=== PATIENT | female | born 1960 | race Caucasian/White ===

== ENCOUNTER 2021-05-09 11:16 | Inpatient (IN) ==
[2021-05-09 12:28] LABS: Basophils % 0.1 % (0.0-0.8); Hematocrit 42.2 VOL% (35.7-47.0); Hemoglobin 16.2 GM/DL (12.0-16.0); Immature Granulocytes % 0.5 %; Immature Granulocytes Absolute 0.05 #; Mean Corpuscular HGB Conc 38.4 GM/DL (32-36); Mean Corpuscular Volume 86.5 FL (87-102); Mean Platelet Volume 9.1 FL (9.6-12.0); Monocytes % 7.6 % (1.7-12.7); Neutrophils % 72.8 % (38.7-73.9); Platelet Count 256 T/CUMM (130-400); Red Blood Count 4.88 MC/CUMM (3.8-5.5); Red Cell Distribution Width 13.4 % (9.3-17.3); White Blood Count 10.4 T/CUMM (4-12)
[2021-05-09] MEDS ORDERED: ONDANSETRON 4 MG/2 ML VIAL IV STA (12:30)
[2021-05-09] MEDS ORDERED: SODIUM CHLORIDE 0.9% 1,000 ML IV STA (12:30)
[2021-05-09] MEDS ORDERED: HYDROmorphone 2 MG/1 ML VIAL IV STA (12:30)
[2021-05-09 14:36] LABS: Albumin 2.8 G/DL (3.4-5.0); Bilirubin,Total 0.9 MG/DL (0.20-1.00); Osmolality,Calculated 265.7 MOS/KG (273-304); Potassium 3.5 MMOL/L (3.5-5.1); Total Protein 6.7 G/DL (6.4-8.2)
[2021-05-09 14:37] LABS: Calcium 8.1 MG/DL (8.5-10.1)
[2021-05-09] MEDS ORDERED: DEXTROSE 50% 25 GM/50 ML VIAL IV PRN ×2 (14:39→16:38)
[2021-05-09] MEDS ORDERED: ALBUTEROL 2.5 MG/3 ML NEB RESP TX PRN (14:39)
[2021-05-09] MEDS ORDERED: GLUCAGON 1 MG VIAL IM PRN ×2 (14:39→16:38)
[2021-05-09] MEDS ORDERED: hydrALAZINE 20 MG/1 ML VIAL IV PRN (14:39)
[2021-05-09 15:40] LABS: Risk Ratio 12.96; VLDL Cholesterol 217.8 MG/DL
[2021-05-09] MEDS ORDERED: FUROSEMIDE 40 MG TABLET PO PRN (15:45)
[2021-05-09] MEDS ORDERED: BUTALBITAL/ACETAMIN/CAFFEINE 50-325-40 MG TABLET PO PRN (15:45)
[2021-05-09] MEDS ORDERED: PROMETHAZINE 25 MG TABLET PO PRN (15:45)
[2021-05-09] MEDS: SODIUM CHLORIDE 0.9% 1,000 ML IV SCH (15:49)
[2021-05-09] MEDS: HYDROmorphone 2 MG/1 ML VIAL IV PRN ×2 (15:50→20:06)
[2021-05-09] MEDS: ENOXAPARIN 40 MG/0.4 ML SYRINGE SUBCUT SCH (15:50)
[2021-05-09] MEDS: ONDANSETRON 4 MG/2 ML VIAL IV PRN (15:50)
[2021-05-09] MEDS ORDERED: clonazePAM 0.5 MG TABLET PO PRN (15:58)
[2021-05-09] MEDS: INSULIN LISPRO 100 UNIT/ML SUBCUT SCH (17:26)
[2021-05-09 20:11] LABS: Osmolality,Calculated 262.8 MOS/KG (273-304); Potassium 4.1 MMOL/L (3.5-5.1)
[2021-05-09 20:16] LABS: Calcium 8.4 MG/DL (8.5-10.1)
[2021-05-09] MEDS: ICOSAPENT ETHYL 1 GM PO SCH (21:47)
[2021-05-09] MEDS: ZALEPLON 5 MG CAPSULE PO SCH (21:48)
[2021-05-10] MEDS: INSULIN LISPRO 100 UNIT/ML SUBCUT SCH ×4 (01:30→18:33)
[2021-05-10] MEDS: HYDROmorphone 2 MG/1 ML VIAL IV PRN ×3 (02:40→15:51)
[2021-05-10] MEDS: SODIUM CHLORIDE 0.9% 1,000 ML IV SCH ×3 (02:42→15:56)
[2021-05-10] MEDS: ACETAMINOPHEN 325 MG TABLET PO PRN ×2 (03:51→09:15)
[2021-05-10 06:39] LABS: Basophils % 0.2 % (0.0-0.8); Eosinophils % 0.1 % (0.00-10.9); Hematocrit 38.6 VOL% (35.7-47.0); Hemoglobin 13.7 GM/DL (12.0-16.0); Immature Granulocytes % 0.4 %; Immature Granulocytes Absolute 0.04 #; Lymphocytes # 2.3 10*3/uL (1.4-4.0); Lymphocytes % 22.8 % (21.3-54.2); Mean Corpuscular HGB Conc 35.5 GM/DL (32-36); Mean Platelet Volume 9.5 FL (9.6-12.0); Monocytes % 9.1 % (1.7-12.7); Neutrophils % 67.4 % (38.7-73.9); Platelet Count 190 T/CUMM (130-400); Red Blood Count 4.29 MC/CUMM (3.8-5.5); Red Cell Distribution Width 13.8 % (9.3-17.3); White Blood Count 9.9 T/CUMM (4-12)
[2021-05-10 07:59] LABS: Bilirubin,Total 1.5 MG/DL (0.20-1.00); Osmolality,Calculated 270.2 MOS/KG (273-304); Potassium 3.6 MMOL/L (3.5-5.1)
[2021-05-10] MEDS ORDERED: PANTOPRAZOLE 20 MG TABLET PO SCH (09:00)
[2021-05-10] MEDS: VALSARTAN 80 MG TABLET PO SCH (09:14)
[2021-05-10] MEDS: PRASUGREL 10 MG TABLET PO SCH (09:14)
[2021-05-10] MEDS: FENOFIBRATE 145 MG TABLET PO SCH (09:14)
[2021-05-10] MEDS: NEBIVOLOL 10 MG TABLET PO SCH (09:14)
[2021-05-10] MEDS: VENLAFAXINE XR 75 MG CAPSULE PO SCH (09:14)
[2021-05-10] MEDS: cloNIDine 0.1 MG TABLET PO SCH (09:14)
[2021-05-10] MEDS: ASPIRIN EC 81 MG TABLET PO SCH (09:14)
[2021-05-10] MEDS: PANTOPRAZOLE 40 MG TABLET PO SCH (09:14)
[2021-05-10] MEDS: ICOSAPENT ETHYL 1 GM PO SCH ×2 (09:15→22:37)
[2021-05-10] MEDS: ENOXAPARIN 40 MG/0.4 ML SYRINGE SUBCUT SCH (15:45)
[2021-05-10] MEDS: ONDANSETRON 4 MG/2 ML VIAL IV PRN (15:45)
[2021-05-10] MEDS: ZALEPLON 5 MG CAPSULE PO SCH (21:47)
[2021-05-11] MEDS: ACETAMINOPHEN 325 MG TABLET PO PRN (03:34)
[2021-05-11] MEDS: SODIUM CHLORIDE 0.9% 1,000 ML IV SCH ×2 (03:37→13:49)
[2021-05-11] MEDS: INSULIN LISPRO 100 UNIT/ML SUBCUT SCH ×3 (03:37→13:49)
[2021-05-11] MEDS: HYDROmorphone 2 MG/1 ML VIAL IV PRN (03:59)
[2021-05-11 05:26] LABS: Basophils % 0.1 % (0.0-0.8); Eosinophils % 0.3 % (0.00-10.9); Hematocrit 32.6 VOL% (35.7-47.0); Hemoglobin 11.3 GM/DL (12.0-16.0); Immature Granulocytes % 0.4 %; Immature Granulocytes Absolute 0.03 #; Lymphocytes # 1.6 10*3/uL (1.4-4.0); Lymphocytes % 22.3 % (21.3-54.2); Mean Corpuscular HGB Conc 34.7 GM/DL (32-36); Mean Corpuscular Volume 88.8 FL (87-102); Mean Platelet Volume 9.4 FL (9.6-12.0); Monocytes % 8.6 % (1.7-12.7); Neutrophils % 68.3 % (38.7-73.9); Platelet Count 159 T/CUMM (130-400); Red Blood Count 3.67 MC/CUMM (3.8-5.5); Red Cell Distribution Width 13.6 % (9.3-17.3); White Blood Count 7.3 T/CUMM (4-12)
[2021-05-11 06:07] LABS: Albumin 2.4 G/DL (3.4-5.0); Bilirubin,Total 1.2 MG/DL (0.20-1.00); Calcium 7.3 MG/DL (8.5-10.1); Osmolality,Calculated 271.1 MOS/KG (273-304); Potassium 3.2 MMOL/L (3.5-5.1); Total Protein 6.1 G/DL (6.4-8.2)
[2021-05-11 06:22] LABS: Risk Ratio 12.79; VLDL Cholesterol 259.2 MG/DL
[2021-05-11] MEDS: cloNIDine 0.1 MG TABLET PO SCH (09:36)
[2021-05-11] MEDS: ASPIRIN EC 81 MG TABLET PO SCH (09:36)
[2021-05-11] MEDS: VENLAFAXINE XR 75 MG CAPSULE PO SCH (09:36)
[2021-05-11] MEDS: NEBIVOLOL 10 MG TABLET PO SCH (09:36)
[2021-05-11] MEDS: PANTOPRAZOLE 40 MG TABLET PO SCH (09:37)
[2021-05-11] MEDS: FENOFIBRATE 145 MG TABLET PO SCH (09:37)
[2021-05-11] MEDS: ICOSAPENT ETHYL 1 GM PO SCH (09:37)
[2021-05-11] MEDS: VALSARTAN 80 MG TABLET PO SCH (09:37)
[2021-05-11] MEDS: PRASUGREL 10 MG TABLET PO SCH (09:37)
[2021-05-11 11:53] VITALS: BP 106/61
[2021-05-11] MEDS ORDERED: POTASSIUM CHLORIDE 20 MEQ PACK PO ONE (12:10)
== END 2021-05-11 14:05 | disposition home or self-care (01) | DRG 440 ==
LOC: N.ED 11:16 → N.EDINP 14:21 → SUATTDRO 14:21 → N.3E 16:38
PROVIDERS: ADMIT Internal Medicine; ATTEND Internal Medicine